=== PATIENT | male | born 1970 | race Caucasian/White ===

== ENCOUNTER 2022-03-28 10:49 | Outpatient (CLI) | payer OTHER | END 2022-03-28 20:12 | disposition home or self-care (01) | LOC: SLB 10:49 | PROVIDERS: ATTEND Family Medicine | DX: F17.200 Nicotine dependence, unspecified, uncomplicated (principal) | CPT/HCPCS: 71046-TC ==

== ENCOUNTER 2022-04-03 07:57 | Outpatient (CLI) | payer OTHER ==
[2022-04-03 08:43] LABS: BILIRUBIN,URINE NEGATIVE (NEGATIVE); BLOOD, URINE NEGATIVE (NEGATIVE); CLARITY/URINE CLEAR (CLEAR); COLOR,URINE YELLOW (YELLOW); GLUCOSE,URINE NEGATIVE (NEGATIVE); KETONES,URINE NEGATIVE (NEGATIVE); LEUKOCYTE ESTERASE ,URINE NEGATIVE (NEGATIVE); NITRITE, URINE NEGATIVE (NEGATIVE); PROTEIN URINE NEGATIVE (NEGATIVE); UROBILINOGEN,URINE 0.2 (0.2-1.0)
[2022-04-03 10:08] LABS: ALBUMIN 4.2 g/dL (3.4-4.8); BILIRUBIN,DIRECT 0.1 mg/dL (0.0-0.3); CALCIUM 8.8 mg/dL (8.4-11.0); CREATININE 0.85 mg/dL (0.55-1.30); FREE T4 (FREE THYROXINE) 0.8 ng/dL (0.6-1.6); THYROID STIMULATING HORMONE 2.14 uIu/mL (0.34-4.82); TOTAL BILIRUBIN 0.4 mg/dL (0.0-1.0); URIC ACID 5.6 mg/dL (2.4-7.0)
[2022-04-04 07:07] LABS: % FREE PSA 17.5 % (.); FREE PSA 0.35 ng/mL; RA LATEX TURBID <10.0 IU/mL (<14.0); T3 UPTAKE 29 % (24-39)
[2022-04-04 10:07] LABS: ANTI NUCLEAR AB WITH REFLEX Negative (Negative)
== END 2022-04-03 21:09 | disposition home or self-care (01) ==
LOC: SLB 07:57
PROVIDERS: ATTEND Family Medicine
DX: Z00.00 Encounter for general adult medical examination without abnormal findings (principal); Z13.21 Encounter for screening for nutritional disorder; Z13.29 Encounter for screening for other suspected endocrine disorder; Z13.0 Encounter for screening for diseases of the blood and blood-forming organs and certain disorders involving the immune mechanism; G72.49 Other inflammatory and immune myopathies, not elsewhere classified
CPT/HCPCS: 36415; 80053; 80061; 81003; 82248; 84153; 84439; 84443; 84479; 84550; 85651-TC; 86038; 86431; 87086